=== PATIENT | female | born 1985 | race Caucasian/White ===

== ENCOUNTER → 2020-04-07 | Outpatient (CLI) | payer BC, MEDICAID ==
[~2020-04-07] MED LIST: BUSPAR DIVIDOSE15 MG PO; GLUCOPHAGE500 MG/TAB PO; MOTRIN 600600 MG/TAB PO; PERCOCET 325 MG1 TA2 PO
== END | disposition still patient (30) ==
LOC: ZCOL.LAB
DX: Z20.828 Contact with and (suspected) exposure to other viral communicable diseases (principal)

== ENCOUNTER 2020-04-11 05:28 | Inpatient (IN) | payer BC, MEDICAID ==
[2020-04-11] VITALS (20 sets, daily range): BP systolic 102–131; BP diastolic 52–83; PULSE 8–98; TEMP 97.6–99
[~2020-04-11] VITALS: Ht 152.4 cm; Wt 90.9 kg
[2020-04-11 06:05] LABS: BASO # 0.1 (0.0-0.2); BASO % 0.6 % (0.0-2.0); EOS # 0.1 (0.0-0.7); EOS % 0.9 % (0-4.0); GRAN # 5.7 (1.4-6.5); GRAN % 64.8 % (42.2-75.2); HEMOGLOBIN 12.2 g/dl (12.5-16.0); LYMPH # 2.4 (1.2-3.4); LYMPH % 27.5 % (20.0-51.0); MEAN CELL VOLUME 88 fl (80.0-100.0); MEAN CORPUSCULAR HEMOGLOBIN 30 pg (27.0-31.0); MEAN CORPUSCULAR HGB CONC 34 g/dl (33.0-37.0); MONO # 0.5 (0.1-0.6); MONO % 5.6 % (1.7-9.3); PLATELET COUNT 298 K/mm3 (130-400); RED BLOOD COUNT 4.09 M/mm3 (4.10-5.30); REDCELL DISTRIBUTION WIDTH-CV 13.2 % (11.5-14.5)
[2020-04-11 06:06] LABS: HEMATOCRIT 35.8 % (37.0-47.0)
[2020-04-11] MEDS ORDERED: GLUCOPHAGE500 MG/TAB PO (06:46)
[2020-04-11] MEDS ORDERED: BUSPAR DIVIDOSE15 MG PO (06:47)
--- NOTE | 2020-04-11 18:35 | NUR ---
Bedside report recieved. asleep in crib while patient is returning to bed from using the restroom. 450mls of clear urine drained from hat. POC reviewed. Requested evening Metformin and Buspirone.
--- NOTE | 2020-04-11 22:30 | NUR ---
Sitting at bedside sobbing. Reports she cannot get back into bed because she is in to much pain. Mophine administered and ice pack to inc. Requests to sit at bedside until pain decreases.
--- NOTE | 2020-04-11 23:00 | NUR ---
Returned to bed. to breast. Reports pain is "decreasing" and "tolerable". Encouraged to call for assistance with getting to and from crib.
[2020-04-12 04:09] VITALS: BP 120/75; PULSE 112; TEMP 98.1
--- NOTE | 2020-04-12 04:09 | NUR ---
Called to room at this time due to nausea. Resting in bed. Zofran administered. Vomited 400mls of green/yellow fluid. Cool cloth to forehead. Cheeks noted to be flush and chest noted to be red. "I feel like my abdomen is going to explode." Active bowel sounds noted. ABD soft. Fundus firm. "The pain is just so bad." VS obtained. Up to restroom. Returned to bed where she sat leaned against her bedside table. Hands noted to be shaky. Again states, "This pain is to much." Morphine administered. At 0500 patient able to lay down in bed. Reports she is dizzy and nausea still. Cool cloth to head. Eyes closed, going to try to nap.
[2020-04-12 06:37] LABS: HEMOGLOBIN 11.7 g/dl (12.5-16.0)
[2020-04-12 06:53] LABS: HEMATOCRIT 35.8 % (37.0-47.0)
[2020-04-12 08:30] VITALS: BP 116/66; PULSE 114; TEMP 99.2
[2020-04-12] MEDS ORDERED: MOTRIN 600600 MG/TAB PO (09:02)
[2020-04-12] MEDS ORDERED: PERCOCET 325 MG1 TA2 PO (09:02)
--- NOTE | 2020-04-12 09:06 | NUR ---
Initial visit; Patient thanked General Helper for looking in on her, offering God's blessings and congratulations for the of her son. General Helper thanked mom for choosing [facility] and wished her a happy, healthy Holiday Season.
[2020-04-12 16:50] VITALS: BP 107/60; PULSE 100; TEMP 99.5
[2020-04-12 20:30] VITALS: BP 101/49; PULSE 94; TEMP 98.7
[2020-04-13 05:30] VITALS: TEMP 98.2
[2020-04-13 08:30] VITALS: BP 115/75; PULSE 84; TEMP 98.4
== END 2020-04-13 14:00 | disposition home or self-care (01) | DRG 788 ==
LOC: OB 05:28
PROVIDERS: ADMIT Obstetrics & Gynecology
PROC: 10D00Z1 Extraction of Products of Conception, Low, Open Approach (ICD-10-PCS; principal; 2020-04-11)
DX: O34.211 Maternal care for low transverse scar from previous cesarean delivery (principal); Z37.0 Single live birth; O99.284 Endocrine, nutritional and metabolic diseases complicating childbirth; E28.2 Polycystic ovarian syndrome; O99.344 Other mental disorders complicating childbirth; F32.9 Major depressive disorder, single episode, unspecified; O99.214 Obesity complicating childbirth; E66.9 Obesity, unspecified; F41.9 Anxiety disorder, unspecified; Z3A.39 39 weeks gestation of pregnancy
CPT/HCPCS: J1580; J1885; J2270; J2405; J2590; J7120